=== PATIENT | male | born 1995 | race Caucasian/White ===

== ENCOUNTER 2024-01-22 14:15 | Emergency (ER) | payer OTHER, SELFPAY ==
--- NOTE | 2024-01-22 14:17 | W.ED.GENAD ---
Discharge Plan Disposition Patient Disposition: Home Discharge Details Clinical Impression: Nausea & vomiting, Blood pressure elevated without history of HTN Primary Care Provider: Unknown,Unknown ED Provider: Shukri Mesa Home Meds and New Rx's Prescriptions: No Action No Known Home Meds Discharge Instructions Instructions: Acute Nausea and Vomiting (ED) Additional Instructions: You were seen in the emergency department for your nausea and vomiting. Your blood work shows that your kidneys are working well and that you had no acute abnormalities of your electrolytes. Your COVID, influenza, and RSV swabs were all negative. As we discussed please take these nausea tablets as needed. Please resume eating but follow a bland diet for the next several days. If you do not urinate at least once every 8 hours while awake please return to the emergency department. Please also return if you develop fevers or abdominal pain. If you feel improved tomorrow you may go to work. You are receiving a note that we will also excuse you for 1 additional day if you do not feel well enough to work tomorrow. We also discussed your elevated blood pressure. Your referral has been placed for you to have a primary care provider. As we discussed if you develop shortness of breath swelling in your legs or hands or any chest pain please return to the emergency department. Stand Alone Forms: Work Release Discharge Data Discharge Date/Time-TO BE ENTERED AT DEPARTURE: 01/22/24 16:27 HPI General Date/Time Provider Initiated Documentation: 01/22/24 14:16. HPI Narrative: MDM This is an overall very well-appearing previously healthy normothermic and not tachycardic 29-year-old male with nausea and vomiting for which he will receive an assessment of his electrolytes along with 1 L of IV fluids and ondansetron for nausea. No fevers nor right lower quadrant tenderness to suggest appendicitis. No pain out of proportion to suggest necrotizing soft tissue infection. No testicular pain to suggest torsion. No dysuria nor frequency so doubt UTI. No diarrhea to suggest diverticulitis. No past surgical history to abdomen so my suspicion is low for small bowel obstruction. Patient is not an alcoholic and has no epigastric tenderness so I did not obtain a lipase as my suspicion was low for pancreatitis. Patient has no crepitance nor chest pain so my suspicion is low for esophageal rupture. Patient has no vascular risk factors and so my suspicion for ruptured AAA is low in the absence of abdominal pain. No rash to abdomen to suggest zoster. Patient is not a diabetic so my suspicion for DKA is low. No recent foreign travel to suggest atypical infection. Not immunocompromise to suggest opportunistic infection. No chest pain to suggest ACS so I did not obtain ECG. I considered sepsis however the patient is not septic appearing and is neither tachycardic nor tachypneic so I did not order a lactate nor treat empirically with broad-spectrum antibiotics. Given nontender abdomen my suspicion for bowel ischemia is low. No head trauma to suggest intracranial hemorrhage. Patient is not a marathon runner so my suspicion for gastric volvulus is low. No routine marijuana use to suggest cannabinoid hyperemesis syndrome. Will obtain LFTs to assess for hepatitis however the patient has nonicteric sclera. Will swab for COVID influenza and RSV. Will ensure patient can pass a p.o. trial in the ED. Vital signs notable for hypertension. Will ensure that this improves in the ED. 3:41 PM Reassuring comprehensive metabolic panel with very mild hyperbilirubinemia but no LFT abnormalities. Normal renal function. No acute electrolyte abnormalities. CBC lacks anemia thrombocytopenia and leukocytosis. 4:11 PM COVID influenza RSV all negative. I met with the patient. He had tolerated a p.o. trial. He had had no recurrent emesis in the emergency department. He reported feeling improved. Patient and I discussed his elevated blood pressure. He says that it is frequently elevated when he sees doctors. Prior to discharge his blood pressure was mildly improved. I advised him that if he developed shortness of breath any swelling in his legs or hands that he should return to the emergency department as this would be a concerning sign of renal failure from persistent hypertension. I also advised that he certainly could have whitecoat syndrome. He does not locally have a PCP yet but waiting to establish 1 this summer once he moves his son up to the area. I have asked health community service organization director Keysha to have the patient established with a primary care provider. I sent patient home with a short course of ondansetron. I provided him with a work note. We discussed that he should return to the emergency department if he developed any abdominal pain any fevers or if he could not eat or drink as result of nausea or vomiting. He understood his return indications and was discharged with empiric trial of expectant outpatient management. Chronic conditions affecting the care of the patient: N/A History obtained from an outside historian: N/A External record review: No [facility] [place] Medications: Ondansetron IVF Social determinants of health affecting disposition: N/A Management discussed with: N/A Treatment/interventions considered: CT scan but deferred based on nontender abdomen. Response to therapies provided: Improved symptoms in the ED HPI This is a previously healthy 29-year-old male arriving to the emergency department via private vehicle in the setting of nausea and vomiting. Patient reports that he ate dinner at his mother's 3 nights ago and had grilled chicken and salad. That evening he woke up with nausea and vomiting. He took the day off of work 2 days ago. Yesterday he felt slightly improved and was able to hold down some water. Yesterday evening with his girlfriend he had a small amount of food. He subsequently went to bed. He woke up in the morning and vomited again. He is able to fall back asleep and slept until just after noon today. He is able to hold down some water subsequently. He denies any abdominal pain but feels as if he has pulled a muscle in his stomach. No fevers. No syncope. He did have some weakness in some subjective chills after emesis. He has no sick contacts though lives with a 9-month-old baby. He only occasionally drinks ethanol denies routine ethanol and illicits. He denies dysuria and frequency. No testicular pain. He takes no medications and has no allergies. He has never had any surgeries to his abdomen. He has not tried to eat anything yet today. Exam General: Well-appearing in no acute distress speaking in complete sentences. Head: Normocephalic, atraumatic. Eye: Extraocular eye movements intact. No conjunctival injection. No scleral icterus. Ear, nose, mouth, throat: Grossly normal inspection. Normal voice, handling secretions normally. Neck: Trachea midline. Cardiovascular: Well-perfused distal extremities. Regular rate and rhythm. Respiratory: Nonlabored respiration. Clear lungs bilaterally Gastrointestinal: Nondistended abdomen. Soft nontender. No rebound. No guarding. No rash to abdomen. Musculoskeletal: No edema. Moving all 4 extremities spontaneously. Skin: Normal for age and race, grossly normal temperature and turgor. No acute rash. Neurologic: Alert and appropriate, no apparent acute deficits. Psychiatric: Mood and manner are appropriate. Grooming and personal hygiene are appropriate. Related Data Home Medications Medication Instructions Recorded Confirmed Unknown [No Known Home Meds] 01/22/24 01/22/24 Allergies Allergy/AdvReac Type Severity Reaction Status Date / Time No Known Allergies Allergy Verified 01/22/24 14:25 Medical Decision Making Quality:SDOH Health Related Social Needs: No Data to Display PFSH All Active Problems (Updated 01/22/24 @ 16:22 by Shukri Mesa MD) Blood pressure elevated without history of HTN (Acute) Nausea & vomiting (Acute) Social History Smoking risk assessment performed?: No
[2024-01-22 14:19] VITALS: BP 172/91; PULSE 63; RESP 16; TEMP 36.6; O2SAT 98
[2024-01-22] MEDS: Normal Saline 1,000 ML 1000 ML IV (14:54)
[2024-01-22] MEDS: Ondansetron 4 MG/2 ML VIAL IVP (14:55)
[2024-01-22 14:57] LABS: Abs Immature Grans 0.01 10^3/uL (0.0-0.06); Absolute Basophil Count 0.04 10^3/uL (0.0-0.2); Absolute Eosinophil Count 0.03 10^3/uL (0.0-0.7); Absolute Lymphocyte Count 1.73 10^3/uL (1.2-3.4); Absolute Monocyte Count 0.52 10^3/uL (0.1-0.8); Absolute Neutrophil Count 4.16 10^3/uL (1.2-6.7); Basophils % 0.6 %; Eosinophils % 0.5 %; HCT 43.7 % (40.0-50.0); HGB 15.7 g/dL (13.5-17.5); Immature Grans % 0.2 %; Lymphocytes % 26.7 %; MCH 32.1 pg (27.0-33.0); MCHC 35.9 % (32.0-36.0); MCV 89 fL (80-95); Platelet Count 181 10^3/uL (130-400); RBC 4.89 10^6/uL (4.36-5.78); RDW 10.7 % (11.8-14.1); RDW-SD 35.2 fL; WBC 6.49 10^3/uL (4.4-10.8)
[2024-01-22 15:18] LABS: ALT 46 U/L (16-63); AST 25 U/L (15-37); Albumin 4.2 g/dL (3.4-5.0); Alkaline Phosphatase 78 U/L (46-116); Anion Gap 9.4 mmol/L (3-11); BUN 11 mg/dL (7-18); Bilirubin, Total 1.2 mg/dL (0.2-1.0); CO2 27.6 mmol/L (21.0-32.0); CREATININE 0.9 mg/dL (0.70-1.30); Chloride 101 mmol/L (98-107); Estimated GFR 117.83 (mL/min/1.73m2); Glucose 95 mg/dL (74-106); Potassium 3.5 mmol/L (3.5-5.1); Sodium 138 mmol/L (136-145); Total Protein 7.3 g/dL (6.4-8.2)
[2024-01-22 15:56] LABS: COVID-19 PCR Negative (Negative); Influenza A PCR Negative (Negative); Influenza B PCR Negative (Negative); RSV PCR Negative (Negative)
[2024-01-22 16:04] LABS: Source Nasopharynx
[2024-01-22 16:13] VITALS: BP 161/101; PULSE 63; RESP 18; TEMP 36.7; O2SAT 98
[2024-01-22 16:26] VITALS: BP 161/101; PULSE 63; RESP 18; TEMP 36.7; O2SAT 98
[2024-01-22] MEDS: Ondansetron O.D.T. 4 MG TABEF, 3 TABS/BTL PO (16:27)
--- NOTE | 2024-01-22 19:38 | NUR.NOTE ---
Patient needs to establish pcp, referral to Care Management.Nursing Note:
== END 2024-01-22 16:27 | disposition home or self-care (01) ==
LOC: ER 16:25
PROVIDERS: Emergency Provider Emergency Medicine
DX: R11.2 Nausea with vomiting, unspecified (principal); R19.7 Diarrhea, unspecified; R03.0 Elevated blood-pressure reading, without diagnosis of hypertension
CPT/HCPCS: 36415; 80053; 87637; 96361; 96374; 99284; 85025; 99283; J2405

== ENCOUNTER 2024-04-29 16:24 | Emergency (ER) | payer OTHER, SELFPAY ==
[2024-04-29 16:25] VITALS: BP 121/84; PULSE 70; RESP 16; TEMP 37; O2SAT 98
--- NOTE | 2024-04-29 16:56 | ED.GENADUL_ITS ---
Discharge Plan Disposition Patient Disposition: Home Condition: Good Discharge Details Clinical Impression: Dehydration, Periumbilical hernia Primary Care Provider: Adelaida,Local ED Provider: J Carlos Davenport Home Meds and New Rx's Prescriptions: No Action No Known Home Meds Discharge Instructions Instructions: Dehydration, Adult (DC), Abdominal wall hernias Additional Instructions: At this time your exam is reassuring, you do have a mild hernia which we will place a referral with our surgeons for outpatient follow-up. Please make sure to wear a lifting belt to help reduce pressure on the hernia when you do lift. Avoid lifting excessively heavy weights. Please follow-up with the surgeon on an outpatient basis for reassessment. You do still have mild dehydration secondary to your nausea vomiting and diarrhea over the last few days. Please drink 6 to 8 cups of electrolyte solution this evening for rehydration, and rehydrate well throughout the day tomorrow while at work. If you notice any worsening of your symptoms, or any new symptoms such as vomiting, diarrhea, fever, chills, shortness of breath, chest pain, numbness, weakness, or fainting , please return immediately to the emergency department for reevaluation. Please follow up with your primary care provider as soon as possible for reassessment and reevaluation. As always, it was a pleasure par ticipating in your medical care today. Stand Alone Forms: Work Release Referrals: Matthieu Muñoz MD [ [facility] STAFF PHYSICIAN] - Zeyad Cabrera MD [ [facility] STAFF PHYSICIAN] - Tracy Almanzar DO [OSTEOPATHIC DOCTOR] - [facility] General Date/Time Provider Initiated Documentation: 04/29/24 16:37 . [facility] Narrative: 29-year-old male with no significant past medical history presents today for evaluation. Patient states that he went to the fair over the weekend, and then for Saturday and Saturday had multiple episodes of nausea vomiting and diarrhea. Eventually this resolved during Saturday, and today on Saturday he has complete resolution of his symptoms. He has been able to eat and drink and keep things down. His work he did request that he come in for a work note for permission to go back to work. Patient states that during his episodes of vomiting he did have mild pain at a previous hernia that he has had, and wanted to get that evaluated as well. Currently has no pain. He denies any pain currently, he denies any blood in his stool or vomit. He denies any chest pain or shortness of breath. He denies any other complaints at this time. No other modifying factors. Related Data Home Medications ?Medication ?Instructions ?Recorded ?Confirmed Unknown [No Known Home Meds] 01/22/24 04/29/24 Allergies Allergy/AdvReac Type Severity Reaction Status Date / Time No Known Allergies Allergy Verified 04/29/24 16:30 General Stated Complaint: Abd Prob ERIN: 5 Review of Systems All systems reviewed & are unremarkable except as noted in HPI and below Exam Narrative Exam Narrative: 1.Const: Well-nourished, Well-developed, appearing stated age 2.Eyes: PERRL, no conjunctival injection, and symmetrical lids. 3.ENT: Atraumatic external nose and ears. Dry MM. Neck: Symmetric, trachea midline, No thyromegaly. 4.CVS: +S1/S2, No murmurs or gallops. Peripheral pulses 2+ and equal in all extremities. Brisk capillary refill in all extremities. 5.RESP: Unlabored respiratory effort. Clear to auscultation bilaterally. No wheezes rales or rhonchi 6.GI: Soft, Nontender/Nondistended, No hepatosplenomegaly. No guarding or rebound. Small periumbilical hernia is palpable just superior to the umbilicus. Easily reducible. Nontender. No incarceration or strangulation. 7.MSK: Normocephalic/Atraumatic, Extremities w/o deformity or ttp No cyanosis or clubbing, Normal movement of all extremities 8.Skin: Warm, Dry. No rashes or lesions. 9.Neuro: photographic intelligence officer II-XII grossly intact. Sensation grossly intact, no focal neurologic deficits. 10.Psych: (AAO) x3. Appropriate mood and affect Course Vital Signs Vital signs: Vital Signs Temperature 37.0 C 04/29/24 16:25 Pulse 70 04/29/24 16:25 Respiratory Rate 16 04/29/24 16:25 Blood Pressure 121/84 04/29/24 16:25 Pulse Oximetry 98 04/29/24 16:25 Temperature 37.0 C 04/29/24 16:25 Temperature Source Temporal Artery Scan 04/29/24 16:25 Pulse 70 04/29/24 16:25 Respiratory Rate 16 04/29/24 16:25 Respiratory Effort Normal 04/29/24 16:31 Blood Pressure 121/84 04/29/24 16:25 Blood Pressure Position Sitting 04/29/24 16:25 Pulse Oximetry 98 04/29/24 16:25 Oxygen Delivery Method Room Air 04/29/24 16:25 Oxygen Flow Rate 0 04/29/24 16:25 Pain Level 1 04/29/24 16:25 Medical Decision Making 29-year-old male with no significant past medical history presents today for evaluation. Patient states that he went to the fair over the weekend, and then for Saturday and Saturday had multiple episodes of nausea vomiting and diarrhea. Eventually this resolved during Saturday, and today on Saturday he has complete resolution of his symptoms. He has been able to eat and drink and keep things down. His work he did request that he come in for a work note for permission to go back to work. Patient states that during his episodes of vomiting he did have mild pain at a previous hernia that he has had, and wanted to get that evaluated as well. Currently has no pain. He denies any pain currently, he denies any blood in his stool or vomit. He denies any chest pain or shortness of breath. He denies any other complaints at this time. No other modifying factors. Exam demonstrates a well-appearing male, dry mucous membranes are present. He has a small supraumbilical hernia which is easily reducible. No evidence of incarceration or strangulation. Abdomen is notably nontender, no guarding or rebound. No pain at McBurney's point, negative Fraser sign. Patient appears clinically well. With no indication for emergent surgical intervention at this time we will place an outpatient nonemergent referral with our local surgeons for further discussion of potential nonemergent future surgical options. Patient's vital signs are stable, no tachycardia or hypotension. Will recommend continued outpatient hydration. Recommended Gatorade or electrolyte solution for the next 12 to 24 hours. Otherwise patient appears notably stable. Discussed red flags for which to return. I have extensively reviewed the treatment plan and discharge instructions with the patient. I have addressed all patient concerns at this time. The patient was made aware of what symptoms to monitor for that would warrant a return to the emergency department. Discussed the plan with the patient, they demonstrate verbal understanding and agreement with our assessment and plan at this time. The documentation in this chart was dictated using [employer] dictation software. Please excuse any dictation errors. Quality:SDOH Health Related Social Needs: No Data to Display PFSH All Active Problems Periumbilical hernia (Acute) Dehydration (Acute) Social History Smoking risk assessment performed?: No
[2024-04-29 17:20] VITALS: BP 121/84; PULSE 70; RESP 16; TEMP 37; O2SAT 98
--- NOTE | 2024-04-29 17:27 | NUR.NOTE ---
Referral faxed to [facility] for a follow up as soon as available for a hernia.
== END 2024-04-29 17:23 | disposition home or self-care (01) ==
LOC: ER 17:29
PROVIDERS: Emergency Provider Student in an Organized Health Care Education/Training Program
DX: R10.9 Unspecified abdominal pain (principal); K42.9 Umbilical hernia without obstruction or gangrene; E86.0 Dehydration
CPT/HCPCS: 99282; 99283

== ENCOUNTER 2024-05-14 09:12 | Emergency (ER) | payer SELFPAY ==
[2024-05-14 09:28] VITALS: BP 153/93; PULSE 70; RESP 16; TEMP 36.8; O2SAT 98
[2024-05-14] MEDS: Ibuprofen 600 MG TAB PO (09:52)
[2024-05-14] MEDS: Lidocaine 5% Patch 1 PATCH TP (09:52)
[2024-05-14] MEDS: Acetaminophen 500 MG TAB 1000 MG PO (09:52)
--- NOTE | 2024-05-14 10:00 | DI.RAD_ITS ---
Exam(s) XR LUMBAR SPINE AP, LAT EXAM: XR LUMBAR SPINE AP, LAT CLINICAL HISTORY: lower back pain. TECHNIQUE: 2D digital imaging was performed. Five views. COMPARISON: No exams were available for comparison FINDINGS: BONES: No fracture or destructive lesion. Vertebral body heights are maintained. No facet hypertro phy identified . DISKS: Intervertebral disc spaces are maintained. ALIGNMENT: Lumbar spinal alignment is within normal limits. SOFT TISSUE: Normal. IMPRESSION: Unremarkable radiographs of the lumbar spine. DATA REPOSITORY: RADIATION DOSE DELIVERED:
[2024-05-14 10:32] VITALS: BP 142/89; PULSE 70; RESP 16; TEMP 36.8; O2SAT 99
--- NOTE | 2024-05-14 11:44 | W.ED.GENAD ---
Discharge Plan Disposition Patient Disposition: Home Condition: Stable Discharge Details Clinical Impression: Back pain Primary Care Provider: Adelaida,Local ED Provider: Skyla Quezada Home Meds and New Rx's Prescriptions: New lidocaine [Lidoderm] 5 % adhesive patch,medicated 1 patch topical DAILY Qty: 15 0RF Rx Instructions: leave on most painful area for up to 12 hrs methocarbamol 750 mg tablet 750 mg PO TID Qty: 30 0RF Discharge Instructions Instructions: Low Back Pain ED Discharge Data Discharge Date/Time-TO BE ENTERED AT DEPARTURE: 05/14/24 10:53 HPI General Date/Time Provider Initiated Documentation: 05/14/24 09:34. Limitations to Documentation: no limitations. Information obtained by: patient. HPI Narrative: 29-year-old gentleman without significant past medical history presents for evaluation of lumbar back pain. 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 He states that he felt some immediate pain in his lower back. He states that he continued to work but this morning he had more pain. He did not try any medications for relief. He denies any numbness or tingling. Denies any weakness in his legs. Pain worse with movement. Denies any change in bowel or bladder. He reports that in September he did have a fall that fractured his lumbar spine. He states that he did not require surgery. Related Data Home Medications ?Medication ?Instructions ?Recorded ?Confirmed lidocaine 5 % topical patch 1 patch topical DAILY #15 ea 05/14/24 (Lidoderm) methocarbamol 750 mg tablet 750 mg PO TID #30 tabs 05/14/24 Previous Rx's ?Medication ?Instructions ?Recorded lidocaine 5 % topical patch 1 patch topical DAILY #15 ea 05/14/24 (Lidoderm) methocarbamol 750 mg tablet 750 mg PO TID #30 tabs 05/14/24 Allergies Allergy/AdvReac Type Severity Reaction Status Date / Time No Known Allergies Allergy Verified 05/14/24 09:30 General Stated Complaint: Nk/Back Pain ERIN: 3 Exam Narrative Exam Narrative: Review of Systems: All systems reviewed & are unremarkable except as noted in HPI and below Well-developed, no acute distress NCAT Unlabored respiratory effort Extremities w/o deformity, no cyanosis, no edema No midline back tenderness, step-off or deformity, mild paraspinal lumbar tenderness 5 out of 5 strength bilateral lower extremities, normal sensation, normal gait no focal neurologic deficits Course Vital Signs Vital signs: Vital Signs Temperature 36.8 C 05/14/24 09:28 Pulse 70 05/14/24 09:28 Respiratory Rate 16 05/14/24 09:28 Blood Pressure 153/93 H 05/14/24 09:28 Pulse Oximetry 98 05/14/24 09:28 Temperature 36.8 C 05/14/24 10:32 Temperature Source Oral 05/14/24 09:28 Pulse 70 05/14/24 10:32 Respiratory Rate 16 05/14/24 10:32 Blood Pressure 142/89 H 05/14/24 10:32 Blood Pressure Position Sitting 05/14/24 09:28 Pulse Oximetry 99 05/14/24 10:32 Oxygen Delivery Method Room Air 05/14/24 09:28 Oxygen Flow Rate 0 05/14/24 09:28 Pain Level 6 05/14/24 10:32 Medical Decision Making Emergent evaluation of atraumatic lumbar back pain. The patient is neurologically intact and did not have any difficulty walking. He has not tried any medications for relief. Does have history of remote lumbar fracture. X-ray of his lumbar spine was obtained and radiology report was reviewed: IMPRESSION: Unremarkable radiographs of the lumbar spine. Medications were provided for comfort and prescriptions were also sent to the pharmacy for ongoing symptomatic improvement. Recommend follow-up with PCP for reevaluation of symptoms are not improving. Quality:SDOH Health Related Social Needs: No Data to Display PFSH All Active Problems Back pain (Acute) Periumbilical hernia (Acute) Dehydration (Acute) Social History Smoking risk assessment performed?: No Do you feel safe at home: Yes Do you feel safe in your relationship?: Yes
== END 2024-05-14 10:53 | disposition home or self-care (01) ==
PROVIDERS: Emergency Provider Emergency Medicine
DX: M54.50 Low back pain, unspecified (principal); X50.0XXA Overexertion from strenuous movement or load, initial encounter; Y93.89 Activity, other specified; Y92.812 Truck as the place of occurrence of the external cause; Y99.0 Civilian activity done for income or pay
CPT/HCPCS: 99283; 72100

== ENCOUNTER 2024-10-08 08:59 | Emergency (ER) | payer OTHER, SELFPAY ==
[2024-10-08 09:00] VITALS: BP 173/107; PULSE 78; RESP 15; TEMP 37; O2SAT 98
--- NOTE | 2024-10-08 09:14 | ED.GENADUL_ITS ---
Discharge Plan Disposition Patient Disposition: Home Condition: Stable Discharge Details Clinical Impression: Finger fracture Primary Care Provider: Adelaida,Local ED Provider: Erich Schulz Home Meds and New Rx's Prescriptions: Continued lidocaine [Lidoderm] 5 % adhesive patch,medicated 1 patch topical DAILY Qty: 15 0RF Rx Instructions: leave on most painful area for up to 12 hrs methocarbamol 750 mg tablet 750 mg PO TID PRN Discharge Instructions Additional Instructions: You have a fracture in both of your fingers. You can take 1000 mg of acetaminophen and 600 mg of ibuprofen every 6 hours as needed. Call orthopedics tomorrow to arrange for follow-up appointment. Return to the emergency department if you feel more ill or have severe worsening pain. Stand Alone Forms: Work Release Referrals: Arthur Cruz MD [ [facility] STAFF PHYSICIAN] - [facility] General Mode of arrival: ambulatory . Date/Time Provider Initiated Documentation: 10/08/24 09:08 . Limitations to Documentation: no limitations . Information obtained by: patient . History of Present Illness 29 year old M presents to the emergency department with the chief complaint of right middle and index finger pain, described as moderate, Quality is described as aching, Patient started experiencing this day(s) (1) and it has been constant. No relieving factors improve symptom(s), No exacerbating factors reported . Patient notes no other symptoms.. Patient did receive the following treatments prior to arrival, none Related Data Home Medications ?Medication ?Instructions ?Recorded ?Confirmed lidocaine 5 % topical patch 1 patch topical DAILY #15 ea 05/14/24 10/08/24 (Lidoderm) methocarbamol 750 mg tablet 750 mg PO TID PRN 10/08/24 10/08/24 Previous Rx's ?Medication ?Instructions ?Recorded lidocaine 5 % topical patch 1 patch topical DAILY #15 ea 05/14/24 (Lidoderm) Allergies Allergy/AdvReac Type Severity Reaction Status Date / Time No Known Allergies Allergy Verified 10/08/24 09:08 General Stated Complaint: Orthopedic ERIN: 4 Review of Systems All systems reviewed & are unremarkable except as noted in HPI and below Constitutional Constitutional: Denies chills, Denies fever(s) and Denies weakness Cardiovascular Cardiovascular: Denies chest pain and Denies dyspnea Respiratory Respiratory: Denies cough and Denies dyspnea Gastrointestinal Gastrointestinal: Denies abdominal pain, Denies nausea and Denies vomiting Neurologic Neurologic: Denies weakness Exam Const General: no acute distress Orientation: alert HENVT Head: normal to inspection Ears: external ears normal General nose exam: external nose normal Mouth: moist mucous membranes Eyes General: appearance normal, both eyes and all related structures Neck Neck: normal visual inspection Resp Effort & Inspection: normal respiratory effort and able to speak in complete sentences Cardio Rate: regular rate Skin General skin exam: no rashes or lesions noted Neuro General: patient alert and patient oriented x3 Extrem General: normal to inspection, full ROM and capillary refill normal Psych Mental Status: mental status grossly normal Course Vital Signs Vital signs: Vital Signs Temperature 37.0 C 10/08/24 09:00 Pulse 78 10/08/24 09:00 Respiratory Rate 15 10/08/24 09:00 Blood Pressure 173/107 H 10/08/24 09:00 Pulse Oximetry 98 10/08/24 09:00 Temperature 37.0 C 10/08/24 09:00 Temperature Source Oral 10/08/24 09:00 Pulse 78 10/08/24 09:00 Respiratory Rate 15 10/08/24 09:00 Blood Pressure 173/107 H 10/08/24 09:00 Blood Pressure Position Sitting 10/08/24 09:00 Pulse Oximetry 98 10/08/24 09:00 Oxygen Delivery Method Room Air 10/08/24 09:00 Oxygen Flow Rate 0 10/08/24 09:00 Pain Level 6 10/08/24 09:00 Medical Decision Making 29-year-old male comes in with pain in his right index and middle fingers. He says he works for [employer] and the door is a sliding door. He started on a hill when it was partially opened and he went to grab the door with his right hand and his right index and middle fingers got caught in the door. Denies falling or other injuries. He has pain in the PIP joint in both the right index and middle finger. There is some swelling in both of his fingers in that area. Is full range of motion, intact cap refill. He has no tenderness elsewhere in the hand. Suspect contusion but will obtain x-rays to evaluate for fracture Patient has nondisplaced fractures of the volar plates in both fingers. He is stable. Will place in finger splint and tape the fingers together. Will have him follow-up with orthopedics. Return precautions given Differential Diagnosis Differential Diagnosis: Fracture, contusion Imaging Data Radiologic Study: Attestation: I personally reviewed and interpreted this imaging study as follows: Imaging: X-Ray Radiologist's impression: FINDINGS: BONES: There are nondisplaced fractures at the volar plates of the middle phalanges of the index and middle fingers. No bony destructive lesion is seen. JOINTS: No dislocation present. SOFT TISSUE: Normal swelling around the 2nd and 3rd PIP joints. IMPRESSION: Nondisplaced fractures at the volar plates at the middle phalanges of the middle and index fingers. Quality:SDOH Health Related Social Needs: No Data to Display PFSH All Active Problems Finger fracture (Acute) Vaping nicotine dependence, tobacco product (Acute) Social History Smoking/Tobacco Use Status: Current every day Tobacco Type: e-cigarettes Smoking risk assessment performed?: Yes Alcohol Intake: current Alcohol Intake frequency: 0-2 drinks per day Alcohol type: other Drug use: Never Substance use type: does not use Do you feel safe at home: Yes Do you feel safe in your relationship?: Yes
--- NOTE | 2024-10-08 09:50 | DI.RAD_ITS ---
Exam(s) XR FINGER RT MIDDLE XR FINGER RT INDEX EXAM: XR FINGER RT MIDDLE CLINICAL HISTORY: pain s/p crushed in door. TECHNIQUE: 2D digital imaging was performed. Three views. COMPARISON: CR XR FINGER RT INDEX from 10/08/2024 FINDINGS: BONES: There are nondisplaced fractures at the volar plates of the middle phalanges of the index and middle fingers. No bony destructive lesion is seen. JOINTS: No dislocation present. SOFT TISSUE: Normal swelling around the 2nd and 3rd PIP joints. IMPRESSION: Nondisplaced fractures at the volar plates at the middle phalanges of the middle and index fingers. DATA REPOSITORY: RADIATION DOSE DELIVERED:
== END 2024-10-08 10:34 | disposition home or self-care (01) ==
PROVIDERS: Emergency Provider Emergency Medicine
DX: S62.650A Nondisplaced fracture of middle phalanx of right index finger, initial encounter for closed fracture (principal); S62.652A Nondisplaced fracture of middle phalanx of right middle finger, initial encounter for closed fracture; F17.290 Nicotine dependence, other tobacco product, uncomplicated; W23.0XXA Caught, crushed, jammed, or pinched between moving objects, initial encounter; Y93.89 Activity, other specified; Y92.89 Other specified places as the place of occurrence of the external cause; Y99.0 Civilian activity done for income or pay
CPT/HCPCS: 99283; 73140

== ENCOUNTER 2024-10-27 14:44 | Outpatient (CLI) | payer OTHER, SELFPAY ==
--- NOTE | 2024-10-27 14:30 | DI.RAD_ITS ---
Exam(s) XR HAND RT COMPLETE EXAM: XR HAND RT COMPLETE CLINICAL HISTORY: F/U FRACTURE. TECHNIQUE: 2D digital imaging was performed. Three views. COMPARISON: CR XR FINGER RT MIDDLE from 10/08/2024 FINDINGS: The volar plate fracture of the middle phalanx of the middle finger remains faintly visible. No new abnormality is seen. IMPRESSION: Unremarkable radiographs of the right hand. DATA REPOSITORY: RADIATION DOSE DELIVERED:
== END 2024-10-27 14:45 | disposition home or self-care (01) ==
LOC: DIORS 14:45
PROVIDERS: Visit Provider Student in an Organized Health Care Education/Training Program
DX: S62.650D Nondisplaced fracture of middle phalanx of right index finger, subsequent encounter for fracture with routine healing (principal); X58.XXXD Exposure to other specified factors, subsequent encounter; S62.652D Nondisplaced fracture of middle phalanx of right middle finger, subsequent encounter for fracture with routine healing
CPT/HCPCS: 73130

== ENCOUNTER 2024-12-05 21:43 | Emergency (ER) | payer OTHER, SELFPAY ==
[2024-12-05] VITALS (16 sets, daily range): BP systolic 115–168; BP diastolic 51–105; PULSE 81–106; RESP 10–28; TEMP 37.1; O2SAT 98–100
--- NOTE | 2024-12-05 21:45 | DI.RAD_ITS ---
Exam(s) XR ANKLE RT COMPLETE EXAM: XR ANKLE RT COMPLETE CLINICAL HISTORY: fall, swelling, eval fx. TECHNIQUE: 2D digital imaging was performed of the right ankle. Three images were obtained. AP, la teral and oblique views were obtained. COMPARISON: No exams were available for comparison FINDINGS: BONES: There is an acute oblique fracture of the distal right fibula. The medial aspect of the fract ure lies at the level of the ankle joint. There is both posterior and lateral displacement of the fr acture noted. There is 3 mm lateral displacement of the distal fibular fracture. There is a transve rse fracture through the medial malleolus with distraction of the fracture. There is also question o f a posterior malleolar fracture present. No bony destructive lesion is seen. JOINTS: There is been posterior subluxation of the talus relative to the tibia. SOFT TISSUE: There is soft tissue swelling of the ankle. IMPRESSION: Trimalleolar fracture subluxation of the right ankle. CT scan of the ankle may be obtained for miguel r characterization, particularly of the suspected posterior malleolar fracture. DATA REPOSITORY: RADIATION DOSE DELIVERED:
--- NOTE | 2024-12-05 21:52 | W.ED.GENAD ---
Discharge Plan Disposition Patient Disposition: Home Condition: Stable Discharge Details Clinical Impression: Closed trimalleolar fracture Primary Care Provider: Ilda Desir ED Provider: Yuliana Tomas Home Meds and New Rx's Prescriptions: No Action lidocaine [Lidoderm] 5 % adhesive patch,medicated 1 patch topical DAILY Qty: 15 0RF Rx Instructions: leave on most painful area for up to 12 hrs methocarbamol 750 mg tablet 750 mg PO TID PRN Discharge Instructions Instructions: Ankle Fracture ED Additional Instructions: You were seen in the emergency department today for evaluation of an ankle injury and were found to have a trimalleolar ankle fracture. In our department you had a full physical examination performed, received medications for sedation and had your fracture realigned to the appropriate position. You were placed in a splint and you will be contacted by the orthopedics team to schedule surgery. Please use Tylenol and ibuprofen as well as ice and elevation for pain and swelling, I have also sent you home with a small number of oral morphine which you can use for severe breakthrough pain that does not respond to those alternative measures. You must not bear weight on your leg, please use crutches to get around. Thank you for allowing us to be part of your care. Stand Alone Forms: Work Release Referrals: Arthur Cruz MD [ [facility] STAFF PHYSICIAN] - 5 days HPI General Mode of arrival: EMS. Date/Time Provider Initiated Documentation: 12/05/24 21:51. Limitations to Documentation: no limitations. Information obtained by: patient, EMS and old records reviewed. HPI Narrative: HPI: This is a 29-year-old male patient brought in by EMS with a right ankle injury. The patient reports he was walking to his [facility] [employer] [facility], stepped in a mud pit, and struck something while he was falling, heard a snap in his right ankle and was immediately unable to ambulate. He reports that prior to this event he was in his normal state of health, though he has had a few alcoholic beverages this evening. States that he did not injure any other part of his body, did not strike his head, and did not lose consciousness. The patient had to crawl approximately half a mile to get out towards the road, EMS was summoned and there was an extended extrication and transport. Prior to arrival at our facility who received a gram of Tylenol, 4 mg of Zofran, and a total of 200 mcg of fentanyl in divided doses over a 45-minute transport time. The patient reports pain and swelling in his right ankle, states that he does not have any loss of sensation or numbness distal to this injury, has full range of motion of his toes and does not have any pain at the knee. Exam: Gen: Awake and alert, in no apparent distress HEENT: Non-icteric sclera, EOMs are full. Scalp atraumatic Neck: Supple, no cervical spine tenderness Lungs: No apparent respiratory distress, normal respiratory effort. CV: Appears well perfused, strong distal pulses Abdomen: Non-distended MSK: Moves 4 extremities without apparent limitation in ROM with the exception of the right ankle, which is swollen and painful with movement. The patient has bilateral swelling, no skin breaks, no midfoot tenderness, strong DP pulses, full range of motion of the toes. He has no tenderness to palpation of the calf or rico, knee, proximal fibular region. Pelvis stable to AP compression. Skin: Visualized skin without rashes, cyanosis. Neuro: Normal Gait, no obvious focal deficits or facial asymmetry. Speaks in full, clear sentences. Psych: Appropriate for situation. MDM: This is a 29-year-old male patient presenting for evaluation of an ankle injury. Differential includes but is not limited to fracture, dislocation, sprain. No evidence of neurovascular derangement. This is an isolated injury and the patient's trauma examination is otherwise reassuring. Will obtain x-ray imaging to better characterize the injury. ED Course: X-ray reveals a trimalleolar fracture with evidence of subluxation. I did reach out to orthopedics who recommended reduction through the Aamir maneuver, splinting and outpatient orthopedics surgical management. Sedation provided by Dr. Ramon Toro, please see documentation by that provider, required 140 mg of propofol after which time the fracture was successfully reduced and placed in a posterior short leg splint with stirrup. Postreduction x-rays show near anatomical alignment, patient neurovascularly intact after this procedure. The patient was made nonweightbearing and crutches were provided, as well as a short course of oral morphine for breakthrough pain. I counseled the patient on elevation, Tylenol and ibuprofen, and at this time, the patient has had a full medical evaluation and is safe for discharge to home. They are hemodynamically stable, ambulatory, and tolerating PO. They are understanding of the follow-up plan and return precautions. They left our facility without incident. Yuliana Tomas MD Related Data Home Medications ?Medication ?Instructions ?Recorded ?Confirmed lidocaine 5 % topical patch 1 patch topical DAILY #15 ea 05/14/24 12/05/24 (Lidoderm) methocarbamol 750 mg tablet 750 mg PO TID PRN 10/08/24 12/05/24 Previous Rx's ?Medication ?Instructions ?Recorded lidocaine 5 % topical patch 1 patch topical DAILY #15 ea 05/14/24 (Lidoderm) Allergies Allergy/AdvReac Type Severity Reaction Status Date / Time No Known Allergies Allergy Verified 12/05/24 21:46 General Stated Complaint: Orthopedic ERIN: 3 Course Vital Signs Vital signs: Vital Signs Temperature 37.1 C 12/05/24 21:42 Pulse 88 12/05/24 21:42 Respiratory Rate 16 12/05/24 21:42 Blood Pressure 168/105 H 12/05/24 21:42 Pulse Oximetry 99 12/05/24 21:42 Temperature 37.1 C 12/05/24 21:42 Temperature Source Oral 12/05/24 21:42 Pulse 88 12/05/24 21:42 Respiratory Rate 16 12/05/24 21:42 Blood Pressure 168/105 H 12/05/24 21:42 Blood Pressure Position Sitting 12/05/24 21:42 Pulse Oximetry 99 12/05/24 21:42 Oxygen Delivery Method Room Air 12/05/24 21:42 Oxygen Flow Rate 0 12/05/24 21:42 Pain Level 5 12/05/24 21:47 Procedure Fracture Reduction Fracture #1: Date of Procedure: 12/05/24 Time of procedure: 23:00 Provider that performed the procedure: Yuliana Tomas Standard Time Out Performed: Yes Patient Consented: Written Side: right Fracture Reduction Location: tibia Sedation administered by provider performing procedure: Yes Technique: direct manipulation and traction/counter-traction Post Reduction X-rays Demonstrate: anatomical reduction Post-Reduction Neuro Exam: intact Post-Reduction Vascular Exam: intact Splint Applied: Yes Patient Tolerated Procedure: well and no complications Outcome: other Medical Decision Making Quality:SDOH Health Related Social Needs: No Data to Display PFSH All Active Problems Closed trimalleolar fracture (Acute) Sprain of right index finger (Acute ~10/07/24) Fracture of phalanx of right middle finger (Acute ~10/07/24) Vaping nicotine dependence, tobacco product (Acute) Social History Smoking/Tobacco Use Status: Current every day Tobacco Type: e-cigarettes Smoking risk assessment performed?: Yes Alcohol Intake: current Alcohol Intake frequency: 0-2 drinks per day Alcohol type: other Drug use: Never Substance use type: does not use Housing: house Do you feel safe at home: Yes Do you feel safe in your relationship?: Yes
--- NOTE | 2024-12-05 22:24 | DI.VRAD_ITS ---
PROCEDURE INFORMATION: Exam: XR Right Ankle Exam date and time: 12/05/2024 9:59 PM Age: 29 years old Clinical indication: Pain; Ankle; Right; Fall, swelling, eval FX TECHNIQUE: Imaging protocol: Radiologic exam of the right ankle. Views: 3 or more views. COMPARISON: No relevant prior studies available. FINDINGS: Bones/joints: Fracture subluxation of the right ankle. There is a transverse fracture of the medial malleolus distracted 6 mm. There is no oblique fracture of the distal fibular metaphysis distracted 4 mm. This is consistent with an eversion injury. Possibility of a posterior tibial fracture making this a trimalleolar fracture injury. Recommend CT evaluation for greater sensitivity. Prominent widening of the anterior tibiotalar joint at 1.3 cm. Anterior subluxation of the tibia on the talar dome. Consistent with ligamentous disruption. Soft tissues: Prominent lateral soft tissue swelling. IMPRESSION: 1. Fracture subluxation of the right ankle. Consistent with an eversion injury. 2. Oblique distal fibular metaphyseal fracture with 4 mm distraction. 3. Transverse medial malleolar fracture with 6 mm distraction. 4. Concern for a posterior tibial fracture on lateral view. This is not definitive by plain film. Consider CT follow-up. 5. Widening of the anterior tibiotalar joint at 1.3 cm. 6. Prominent soft tissue swelling. Dictated and Authenticated by: Amado Ma MD. Orderin [facility] Eliot Bridges MD
[2024-12-05] MEDS: Propofol 200 MG/20 ML VIAL 100 MG IVP (22:40)
--- NOTE | 2024-12-05 23:00 | DI.RAD_ITS ---
Exam(s) XR ANKLE RT 2V EXAM: XR ANKLE RT 2V CLINICAL HISTORY: post reduction. TECHNIQUE: 2D digital imaging was performed of the right ankle. Two images were obtained. AP and l ateral views were obtained. COMPARISON: CR,XR XR ANKLE RT COMPLETE from 12/05/2024 FINDINGS: The patient's ankle is now in a cast. BONES: There has been successful reduction of the right ankle fracture subluxation. A trimalleolar f racture of the right ankle is noted. There is a mildly displaced comminuted posterior malleolar frac ture. There is 2 mm displacement posterior of the distal fibular fracture. The medial malleolar fra cture appears near anatomic in alignment. No bony destructive lesion is seen. JOINTS: The ankle mortise is normally aligned. SOFT TISSUE: There is soft tissue swelling of the ankle. IMPRESSION: Successful reduction of the trimalleolar right ankle fracture subluxation with near anatomic realignm ent. DATA REPOSITORY: RADIATION DOSE DELIVERED:
--- NOTE | 2024-12-05 23:02 | W.EDPROG ---
Date of service: 12/05/24 Time of Service: 23:02 Medical Decision Making Patient had presented to ED with ankle injury and was found to have a trimalleolar fracture. Asked by primary physician to provide procedural sedation. Patient last ate around 6 PM. No significant past medical history. Discussed risk/benefit of procedural sedation. Will use propofol as agent. Please see procedure note. Procedure Procedural Sedation Date of Procedure: 12/05/24 Time of procedure: 23:02 Provider that performed the procedure: Miguel A Toro Indication: Procedural optimization Patient Consented: Written Standard Time Out Performed: Yes Sedation Given: Propofol Amount of sedation(mg): 190 Preparation: associate professor plant pathology applied, pulse oximeter, capnometry used, supplemental O2 applied, suction/airway equipment at bedside and IV secured Time of Last PO Intake: 18:00 Note: A total of 190 mg given in aliquots until sedated for procedure. No change in vitals, no complications. Discharge Plan Discharge Details Chief Complaint: Orthopedic Clinical Impression: Closed trimalleolar fracture Primary Care Provider: Ilda Desir ED Provider: Yuliana Tomas [place] Meds and New Rx's Prescriptions: No Action lidocaine [Lidoderm] 5 % adhesive patch,medicated 1 patch topical DAILY Qty: 15 0RF Rx Instructions: leave on most painful area for up to 12 hrs methocarbamol 750 mg tablet 750 mg PO TID PRN
[2024-12-05] MEDS: Propofol 200 MG/20 ML VIAL 90 MG IVP (23:06)
[2024-12-05] MEDS: MORPHine IR 15 MG TAB PO (23:27)
--- NOTE | 2024-12-05 23:55 | DI.VRAD_ITS ---
PROCEDURE INFORMATION: Exam: XR Right Ankle Exam date and time: 12/05/2024 11:43 PM Age: 29 years old Clinical indication: Injury or trauma; Fall; Fracture, traumatic; Closed fracture; Ankle; Right; Not specified; Injury details: Post reduction TECHNIQUE: Imaging protocol: Radiologic exam of the right ankle. Views: 1 or 2 views. COMPARISON: CR XR ANKLE RT COMPLETE 12/05/2024 9:59 PM FINDINGS: Bones/joints: Post closed reduction of trimalleolar ankle fracture subluxation. Near anatomic alignment. Posterior fiberglass splint in place. Soft tissues: Normal. IMPRESSION: 1. Post closed reduction of trimalleolar fracture subluxation with near anatomic alignment. 2. Fiberglass posterior splint. Dictated and Authenticated by: Amado Ma MD. Orderin [facility] Eliot Bridges MD
[2024-12-06] VITALS: PULSE 83; PULSE 85; RESP 18; O2SAT 98
[2024-12-06 00:01] VITALS: BP 147/60; PULSE 84; PULSE 94; RESP 22; O2SAT 98
[2024-12-06] MEDS: MORPHine IR 15 MG TAB, 4 TABS/BTL PO (00:09)
[2024-12-06 00:11] VITALS: BP 147/60; PULSE 84; RESP 22; O2SAT 98
== END 2024-12-06 00:12 | disposition home or self-care (01) ==
PROVIDERS: Emergency Provider Emergency Medicine; PCP Nurse Practitioner Family
DX: S82.851A Displaced trimalleolar fracture of right lower leg, initial encounter for closed fracture (principal); W01.0XXA Fall on same level from slipping, tripping and stumbling without subsequent striking against object, initial encounter; Y93.01 Activity, walking, marching and hiking
CPT/HCPCS: 00123; 27818; 99156; 99284; 73600; 73610; J2704

== ENCOUNTER 2024-12-08 11:15 | Day surgery (SDC) | payer OTHER, SELFPAY ==
[2024-12-08] VITALS (18 sets, daily range): BP systolic 129–174; BP diastolic 61–103; PULSE 56–73; RESP 14–23; TEMP 36.2–36.8; O2SAT 96–100; BMI 26.6
[2024-12-08] MEDS: Celecoxib 200 MG CAP 400 MG PO (11:46)
[2024-12-08] MEDS: Acetaminophen 500 MG TAB 1000 MG PO (11:47)
[2024-12-08] MEDS: Lactated Ringers 1,000 ML 80 ML IV (11:58)
--- NOTE | 2024-12-08 12:01 | W.PREOPHP ---
Assessment and Plan Assessment and plan (1) Closed trimalleolar fracture: Status: Acute Assessment and plan: Erich is a 29-year-old male who has a right trimalleolar ankle fracture. I recommend operative fixation. I discussed the tentacle details of the surgery. I reviewed the risk to include bleeding, infection, pain, stiffness, hardware prominence, hardware failure, need for repeat procedures, damage nerves and vessels, damage to muscle and tendons, arthritis, blood clot. Despite these risk, he elects to proceed. History of Present Illness History of Present Illness Chief Complaint: Right Ankle Fracture Narrative: Erich is a 29-year-old active male who slipped while hiking and suffered a injury to his right foot, resulting in a closed trimalleolar ankle fracture. He was seen in the emergency department with subluxation of the talus and trimalleolar ankle fracture, reduced and placed in a splint. I called him the following day to discuss his x-rays and the injury. Given the nature of the fracture and its inherent instability, I recommend proceeding with operative stabilization and fixation. He is here today for that procedure. He denies any significant medical history. He denies any recent illness. He denies any chest pain or shortness of breath. Review of Systems All systems reviewed & are unremarkable except as noted in HPI and below PFSH All Active Problems Closed trimalleolar fracture (Acute) Sprain of right index finger (Acute ~10/07/24) Fracture of phalanx of right middle finger (Acute ~10/07/24) Vaping nicotine dependence, tobacco product (Acute) Surgical History Hx of wisdom tooth extraction Social History Smoking/Tobacco Use Status: Current every day Tobacco Type: e-cigarettes Smoking risk assessment performed?: Yes Alcohol Intake: current Alcohol Intake frequency: 0-2 drinks per day Drug use: Never Substance use type: does not use Housing: house Do you feel safe at home: Yes Do you feel safe in your relationship?: Yes Meds Allergies and Home Medications Allergies Allergy/AdvReac Type Severity Reaction Status Date / Time No Known Allergies Allergy Verified 12/08/24 11:31 Home Medications ?Medication ?Instructions ?Recorded ?Confirmed ?Type lidocaine 5 % topical patch 1 patch topical DAILY #15 ea 05/14/24 12/08/24 Rx (Lidoderm) acetaminophen 500 mg tablet 500 mg PO Q6H PRN pain #60 tabs 12/08/24 Rx aspirin 81 mg tablet,delayed 81 mg PO BID 14 days #28 tabs 12/08/24 Rx release hydrocodone 5 mg-acetaminophen 325 1 tab PO Q6H PRN severe pain #6 12/08/24 Rx mg tablet tabs ibuprofen 600 mg tablet 600 mg PO TID PRN pain #60 tabs 12/08/24 Rx Exam Const General: cooperative, healthy appearing, comfortable and no acute distress Resp Effort & Inspection: normal respiratory effort Auscultation: clear to auscultation bilaterally Cardio Rate: regular rate Rhythm: regular rhythm Extrem Other: Right lower extremity in a splint. Capillary refill less than 3 seconds. Sensation tact light touch over the deep and superficial peroneal nerve and tibial nerve. No significant pain with toe range of motion. Brief evaluation of the skin about the ankle shows no large fracture blisters or other defects of the skin. Results Imaging Imaging Studies: X-ray of the right ankle shows a trimalleolar ankle fracture with a oblique distal fibula fracture, transverse me malleolar fracture and a small posterior malleolar fracture. There was some posterior subluxation of the talus on initial x-rays which was improved upon postreduction films. Last Vital Signs Temp 36.2 C L 12/08/24 11:19 Pulse 63 12/08/24 11:19 Resp 18 12/08/24 11:19 BP 165/93 H 12/08/24 11:19 Pulse Ox 99 12/08/24 11:19
--- NOTE | 2024-12-08 12:21 | W.ANESPRE ---
General Info Date of Service Date Performed: 12/08/24 Height: 5 ft 10 in Weight: 84.1 kg Body Mass Index (BMI): 26.6 Surgical Procedure: Operation Date: 12/08/24 14:55 Proposed Procedure Side Surgeon p Ankle ORIF Right Arthur Cruz MD Meds Allergies and Home Medications Allergies Allergy/AdvReac Type Severity Reaction Status Date / Time No Known Allergies Allergy Verified 12/08/24 11:31 Home Medication ?Medication ?Instructions ?Recorded lidocaine 5 % topical patch 1 patch topical DAILY #15 ea 05/14/24 (Lidoderm) acetaminophen 500 mg tablet 500 mg PO Q6H PRN pain #60 tabs 12/08/24 aspirin 81 mg tablet,delayed 81 mg PO BID 14 days #28 tabs 12/08/24 release hydrocodone 5 mg-acetaminophen 325 1 tab PO Q6H PRN severe pain #6 12/08/24 mg tablet tabs ibuprofen 600 mg tablet 600 mg PO TID PRN pain #60 tabs 12/08/24 Current Visit Medications: Current Medications Generic Name Dose Route Start Last Admin Trade Name Freq PRN Reason Stop Dose Admin Acetaminophen 1,000 mg 12/08/24 06:00 12/08/24 11:47 Acetaminophen 500 Mg Tab PO 12/08/24 23:59 1,000 mg PREOP AYESHA Administration Celecoxib 400 mg 12/08/24 06:00 12/08/24 11:46 Celecoxib 200 Mg Cap PO 12/08/24 23:59 400 mg PREOP AYESHA Administration Ringer's Solution 1,000 mls @ 80 mls/hr 12/08/24 06:00 12/08/24 11:58 IV 12/08/24 23:59 80 mls/hr INFUSION AYESHA Administration Cefazolin Sodium/Dextrose 2 gm in 50 mls @ 100 mls/hr 12/08/24 06:00 Ancef Duplex IVPB 12/08/24 23:59 PREOP AYESHA Tranexamic Acid/Sodium Chloride 1,000 mg in 100 mls @ 600 mls/hr 12/08/24 06:00 IVPB 12/08/24 23:59 PREOP AYESHA IV Miscellaneous Supplies 1 each 12/08/24 06:00 Iv Access IV 12/08/24 23:59 DIRECTED AYESHA Sodium Chloride 0 ml 12/08/24 06:00 Normal Saline Flush 10 Ml Syr IV 12/08/24 23:59 PRN PRN Sodium Chloride 0 ml 12/08/24 06:00 Normal Saline 10 Ml Vial IJ 12/08/24 23:59 DIRECTED PRN Sterile Water 0 ml 12/08/24 06:00 Water,Injection,Sterile 10 Ml Vial IJ 12/08/24 23:59 DIRECTED PRN PFSH Active Problems Active Problems: Problem Status Onset Code Closed trimalleolar fracture Acute S82.853A Sprain of right index finger Acute ~10/07/24 S63.610A Fracture of phalanx of right middle finger Acute ~10/07/24 S62.602A Vaping nicotine dependence, tobacco product Acute F17.290 Surgical History Surgical History Hx of wisdom tooth extraction Tobacco Smoking/Tobacco Use Status: Current every day Tobacco Type: e-cigarettes Passive smoking exposure: Yes Alcohol Alcohol Intake: current Alcohol intake frequency: 0-2 drinks per day Substance Use Substance use: Never Substance use type: does not use Vital Signs and Lab Results Vital Signs Most Recent Vital Signs in EMR: Most Recent Vital Signs Temp Pulse Resp BP Pulse Ox 36.2 C L 63 18 165/93 H 99 12/08/24 11:19 12/08/24 11:19 12/08/24 11:19 12/08/24 11:19 12/08/24 11:19 Lab Results Blood Type / Crossmatch: No Data to Display Complete Blood Count: No Data to Display Complete Metabolic Panel: No Data to Display Liver Function Panel: No Data to Display Coagulation Panel: No Data to Display Cardiac Panel: No Data to Display Arterial Blood Gas: No Data to Display Venous Blood Gas: No Data to Display Pancreas Panel: No Data to Display Thyroid Panel: No Data to Display Infectious Disease: No Data to Display Blood Cultures: No Data to Display Toxicology Panel: No Data to Display Anesthesia Assessment and Plan Anesthesia History Personal History: No History of Anesthesia Complications Family History: No Family History of Anesthesia Complications Exercise Tolerance Exercise Tolerance: Metabolic Equivalents>4 Pertinent Negatives Pertinent Negatives: No Symptoms of GERD Cardiac & Pulmonary Exam Cardiac Exam: Normal S1/S2 Heart Sounds Pulmonary Exam: Clear Bilateral Breath Sounds Implantable Cardiac Device Does patient have a Pacemaker or an ICD?: No Airway Exam Known Difficult Airway: No Mallampati Class: 2 Mouth Opening: Normal (> 3cm) Thyromental Distance: Greater than 3 cm Facial Hair: Full Suh Neck Range of Motion: Full ROM Neck Circumference: Normal Teeth Condition: Normal Dentition ASA Classification ASA Score: ASA 2 Emergency Case?: No NPO Status NPO Status: NPO Clears >2 hours, Solids >8 hours Anesthesia Plan Resuscitation Status: Full Code Anesthesia Technique: General Anesthesia Airway Planned: LMA Pain Management: Surgeon and patient request nerve block Monitors Used: Standard Monitors Preoperative Comments:: 29 yo male for ORIF ankle. Sig PMHx: vape, occ EtOH, denies major.
--- NOTE | 2024-12-08 12:35 | W.PM.DSUDISC ---
Date of service: 12/08/24 Discharge Plan Disposition Patient Disposition: Home Condition: Good Discharge Details Reason For Visit: Right ankle fracture Attending Provider: Arthur Cruz Primary Care Provider: Ilda Desir Home Meds and New Rx's Prescriptions: New acetaminophen 500 mg tablet 500 mg PO Q6H PRN (Reason: pain) Qty: 60 2RF aspirin 81 mg tablet,delayed release (DR/EC) 81 mg PO BID 14 Days Qty: 28 0RF hydrocodone-acetaminophen 5-325 mg tablet 1 tab PO Q6H PRN (Reason: severe pain) Qty: 6 0RF Rx Instructions: Take one tablet up to every 6 hours as needed for severe postoperative pain ibuprofen 600 mg tablet 600 mg PO TID PRN (Reason: pain) Qty: 60 0RF Continued lidocaine [Lidoderm] 5 % adhesive patch,medicated 1 patch topical DAILY Qty: 15 0RF Rx Instructions: leave on most painful area for up to 12 hrs Discontinued ibuprofen 200 mg tablet 800 mg PO Q8H PRN Discharge Instructions Additional Instructions: Ankle ORIF Discharge Instructions Activity: You are NON WEIGHT BEARING. You should keep the leg elevated as much as possible. You may wiggle your toes and move your hip and knee. Dressings: You should keep your splint clean and dry. Do NOT get wet or dirty. If you have issues with your splint, please call the office at [phone] or the hospital after hours. Medications: - You should take Tylenol and Ibuprofen around the clock for baseline pain. - You have been prescribed a stronger narcotic for breakthrough pain. - You should take a Baby Aspirin (81mg) twice a day for blood clot prevention. Follow-up: 2 weeks Referrals: Arthur Cruz MD [ [facility] STAFF PHYSICIAN] - Equipment/Supplies: Non-Weight Bearing Crutches and Splint Activity:: Elevate Remove Dressings/Wound Care:: Do Not Remove Diet:: As Tolerated Discharge Orders Discharge Orders: Discharge Order (Routine); Ordered 12/08/24 Ordered By: Tracy Diop DS: Diagnosis Discharge Diagnosis (1) Closed trimalleolar fracture: Status: Acute
--- NOTE | 2024-12-08 13:30 | DI.RAD_ITS ---
Exam(s) XR ANKLE RT 2V EXAM: XR ANKLE RT 2V CLINICAL HISTORY: RIGHT ANKLE FRACTURE. TECHNIQUE: 2D and realtime digital imaging was performed. COMPARISON: CR,XR XR ANKLE RT 2V from 12/05/2024 FINDINGS: Hardcopy images show this of tooth screws through the medial malleolus and placement of a lateral fle cks a rico plate along the lateral malleolus. Fracture alignment is now anatomic. Please see procedure note for details. Fluoro time: 26.7seconds RADIATION DOSE DELIVERED: epifanio Haynes=0.49 mGy
[2024-12-08] MEDS: ceFAZolin 2 GM/50 ML BAG IVPB (13:46)
[2024-12-08] MEDS: TRANEXAMIC ACID/SOD. CHL. 1,000 MG/100 ML BAG 600 MG IVPB (13:51)
--- NOTE | 2024-12-08 14:02 | ROE_ITS ---
Operative Note Operative Note PRE-OP DIAGNOSIS: Right Trimalleolar Ankle Fracture POST-OP DIAGNOSIS: same PROCEDURE: Open Reduction and Internal Fixation of Right Trimalleolar Ankle Fracture - Medial and Lateral Malleoli SURGEON: Arthur Cruz [employer] PIL[employer]: Tracy Diop ANESTHESIA TYPE: General LMA/ETT Refer to Anesthesia Record ESTIMATED BLOOD LOSS: 50 PATHOLOGY: none sent TOURNIQUET TIME: 0 COMPLICATIONS: None Patient was transported to: PACU Patient's condition: stable Indications: Erich is an active 29 year old male who presented to the Emergency Department after a fall. X-rays confirmed the diagnosis of a trimalleolar ankle fracture with talar subluxation. I reviewed the possible treatment options and given the fracture, I recommended operative fixation. I discussed the technical details of the surgery. I reviewed the risks such as bleeding, infection, pain, stiffness, malunion, nonunion, hardware prominence, hardware faiilure, malrotation, damage to nerves and vessels, blood clot. Despite these risks, he agreed to proceed. Findings: There is a notably displaced oblique fracture of the lateral malleolus, distal fibula, which was able to be reduced with direct manipulation and a lag screw with neutralization plate. The medial malleolus had a slightly oblique transverse fracture which was held in reduction with two 4.0 mm cannulated screws. Procedure Description: Erich was greeted in the preoperative area. Consent was reviewed and signed. A popliteal and adductor block was provide in the day surgery unit. Erich was transferred to the operating room table. General anesthesia was administered. The right leg was placed onto a bone foam ramp. All bony prominences were well padded. Arms were placed out to the side, padded, and secured. A single dose of TXA, 1 gram, was then administered IV. Prophylactic antibiotics, Cefazolin 2 grams, was given for prophylactic antibiotics. A timeout was performed for safe surgery. The right leg was prepped with Chloraprep. The leg was draped with a stockinette and extremity drape. Starting with the medial side of the ankle, a curvilinear incision was made overlying the medial malleolus curving anteriorly towards the anterior shoulder of the tibiotalar joint. Skin was incised sharply. Deep tissues were dissected with Metzenbaum scissor. The fracture line about minimal this was easily identified and the fascia around the fracture was elevated for better exposure. The fracture was distracted and the joint was inspected with a lamina batch still operator placed into the fracture site. The joint was irrigated thoroughly and there is no fragment seen within the joint itself. The lamina batch still operator was removed and the medial wound was covered with a lap pad. Attention was then turned to the lateral side of the ankle. A longitudinal incision about the fibula was made. This was incised sharply through the skin only. Deep dissection was carried down with Metzenbaum scissors to expose the lateral border of the fibula. Aldridge elevator was utilized periosteally dissect the fracture and extended distally to the tip of the fibula and proximally in anticipation of plate fixation. The fracture was a short oblique fracture extending posteriorly. Fracture hematoma was evacuated with a suction, curette, and irrigation. The reduction maneuver was then performed utilizing a lobster claw clamp with near anatomic alignment of the bony edges. Fluoroscopy is utilized to confirm for positioning. I then placed a single lag screw across the fracture at oblique angle crossing perpendicular to the fracture with excellent purchase and good fracture compression. Clamp was rem cele and there is stability of the fracture. I then used a 7 hole one third tubular plate to neutralize the fracture. The plate was contoured on the back table. This was then placed onto the lateral border the fibula and secured with a nonlocking cortical screw proximal to the fracture site make sure to hold the plate in appropriate position distally. The plate was held against the bone distally and a locking screw was placed into the distal fibula make sure not to penetrate the articular side of the distal fibula. X-ray was once again was utilized to confirm appropriate positioning of the plate. 2 additional locking screws were placed distally and 2 additional nonlocking screws were placed proximally. These had excellent purchase and fixation. Final x-rays showed appropriate placement of the plate and screws. Attention was turned to the medial side the ankle once again. The medial malleolus was now anatomically reduced. It was held reduced while to K wires from the 4.0 mm cannulated screw system were advanced from distal to proximal, 1 anterior and 1 more posterior. The fracture of the medial is did slip off posteriorly where the anterior colliculus was the primary displaced fragment. With these 2 K wires placed and they were confirmed to be in appropriate position on the x-ray. They were measured and overdrilled 1 at a time. 52 mm long partially-threaded 4.0 mm cannula screws were placed 1 at a time, anteriorly then posteriorly. These had excellent compression and the fracture had good stability. Final x-rays were obtained. A stress view was also obtaine d with the foot in dorsiflexion and maximal external rotation without any tibiofibular diastases and without any medial clear space widening. Lateral view was also obtained which showed no displacement of the posterior malleolar fragment. Is unable to be identified on the x-ray and therefore no posterior malleolar fixation was needed. The ankle was taken through range of motion without any block to motion and with no change of fracture positioning on the x- ray. These wounds were then thoroughly irrigated. 0.25% bupivacaine was used to inject the deep and superficial tissues around both wounds. The deep fascia of the lateral wound was closed with 0 Vicryl covering the plate. The deep subcutaneous tissues were closed with 3-0 Vicryl. The skin was closed with a running 4-0 nylon. The medial wound was closed with 2-0 Vicryl followed by interrupted 4-0 nylon. The wounds were then dressed with Xeroform, 4 x 4 gauze, and ABDs. This was further reinforced with Webril. A short leg posterior splint was then applied utilizing fiberglass. At the end of the case, all counts were correct. Erich tolerated the procedure well without known complication and was taken to the PACU for recovery. Physical therapy will start post-operatively, nonweightbearing with a splint. Aspirin 81 mg twice daily will be utilized for anticoagulation. Follow-up in 2 weeks. Date of Procedure: 12/08/24
--- NOTE | 2024-12-08 14:08 | ANES.NERVE_ITS ---
Nerve Block Single Injection Procedure Date and Time Date Performed: 12/08/24 Procedure Start: 13:24 Location Where Procedure Performed Procedure Location: Day Surgery Unit Reason Performed: Postoperative Analgesia Requesting Provider: Arthur Cruz Timeout Performed Timeout Performed: Yes Monitoring Used ECG, Blood Pressure, SpO2 and ETCO2 Sterility Sterility: Hand Hygiene, Surgical Cap, Surgical Mask, Sterile Gloves and Chlorhexidine Sedation Given During Procedure Sedation Given (Indicate Dose Given): Versed IV (2 mg + 2 mg) Dose:: 4 mg Patient Mental Status Patient Mental Status: Sedate with meaningful communication Nerve Block 1st Nerve Block: Laterality: Right Block Type: Popliteal Sciatic Ultrasound Image Saved?: Yes Needle / Catheter Used: 100mm SonoPlex II Local Anesthetic Bolus (Indicate Dose Given): Lidocaine used for local infiltration of skin and Bupivacaine 0.375% Dose:: 20 mL Additives (Indicate Dose Given): None Ultrasound: Sterile probe cover and gel used Nerve Stimulator: Supplement to Ultrasound use and No twitch or parasthe gaurav noted < 0.5 mA Paresthesia: None Procedure Tolerated: No Complications Procedure Outcome: Successful Procedure Comment: Prior to blocks, discussed risks, benefits of regional. Risks including but not limited to block failure, infection, damage to blood vessels, permanent nerve injury. Performed By: Kevin Fleming 2nd Nerve Block: Laterality: Right Block Type: Adductor Canal Ultrasound Image Saved?: Yes Needle / Catheter Used: 100mm SonoPlex II Local Anesthetic Bolus (Indicate Dose Given): Bupivacaine 0.375% Dose:: 10 Additives (Indicate Dose Given): None Ultrasound: Sterile probe cover and gel used Nerve Stimulator: Supplement to Ultrasound use and No twitch or parasthesia noted < 0.5 mA Paresthesia: None Procedure Tolerated: No Complications Procedure Outcome: Successful Performed By: Kevin Fleming
[2024-12-08] MEDS: Bupivacaine 0.5% Pres-Free W/EPI 30 ML VIAL (14:57)
--- NOTE | 2024-12-08 15:38 | W.ANESPOSTOP ---
Postoperative Evaluation Date, Time and Location Date Performed: 12/08/24 Time Performed: 15:38 Patient Location: PACU Vital Signs Most Recent Imported Vital Signs: Most Recent Vital Signs Temp Pulse Resp BP Pulse Ox 36.8 C 68 14 148/91 H 97 12/08/24 13:18 12/08/24 13:40 12/08/24 13:40 12/08/24 13:40 12/08/24 13:40 Pain Score Most Recent Pain Score: Most Recent Pain Score Pain Level 0 12/08/24 13:40 Assessment Mental Status: Awake (Alert & Oriented to Patient Baseline) Airway and Respiratory Function: Patent airway with normal (patient baseline) respiratory exam Cardiovascular Function: Hemodynamically Stable Hydration Status: Adequately Hydrated Nausea & Vomiting: No Nausea or Vomiting Pain: Pain is tolerable per patient Peripheral Nerve Block: Regional nerve block not resolved at time of post operative discharge
== END 2024-12-08 17:17 | disposition home or self-care (01) ==
PROVIDERS: PCP Nurse Practitioner Family; Visit Provider Student in an Organized Health Care Education/Training Program
PROC: (CPT 27822; principal; 2024-12-08 14:45)
DX: S82.851A Displaced trimalleolar fracture of right lower leg, initial encounter for closed fracture (principal); W18.31XA Fall on same level due to stepping on an object, initial encounter; G89.18 Other acute postprocedural pain
CPT/HCPCS: 27822; 64445; 64447; 64450; 76000; 73600; J0665; J0690; J1100; J2250; J2405; J2704

== ENCOUNTER 2024-12-21 11:22 | Outpatient (CLI) | payer OTHER, SELFPAY ==
--- NOTE | 2024-12-21 10:15 | DI.RAD_ITS ---
Exam(s) XR ANKLE RT COMPLETE EXAM: XR ANKLE RT COMPLETE CLINICAL HISTORY: 1ST POST OP S/P R ANKLE ORIF. TECHNIQUE: 2D digital imaging was performed. Three images were obtained. AP, lateral and oblique vi ews were obtained. COMPARISON: CR,XR XR ANKLE RT 2V from 12/05/2024 CR,XR XR ANKLE RT COMPLETE from 12/05/2024 XA XR ANKLE RT 2V from 12/08/2024 FINDINGS: BONES: There are stable post operative changes of internal fixation of the distal tibial and fibular fractures present. No new fracture or dislocation. The orthopedic hardware and fractures appears sta ble. JOINTS: The joint spaces are well maintained. SOFT TISSUE: Normal. IMPRESSION: Stable postoperative changes. DATA REPOSITORY: RADIATION DOSE DELIVERED:
== END 2024-12-21 11:23 | disposition home or self-care (01) ==
LOC: DIORS 11:22
PROVIDERS: PCP Nurse Practitioner Family; Referring Provider Nurse Practitioner Family; Visit Provider Physician Assistant
DX: S82.851A Displaced trimalleolar fracture of right lower leg, initial encounter for closed fracture (principal)
CPT/HCPCS: 73610

== ENCOUNTER 2025-01-28 11:29 | Outpatient (CLI) | payer OTHER, SELFPAY ==
--- NOTE | 2025-01-28 11:18 | DI.RAD_ITS ---
Exam(s) XR ANKLE RT COMPLETE EXAM: XR ANKLE RT COMPLETE CLINICAL HISTORY: S/P ORIF R ANKLE. TECHNIQUE: 2D digital imaging was performed. COMPARISON: CR XR ANKLE RT COMPLETE from 12/21/2024 FINDINGS: 3 views The previously described hardware on both sides the ankle is again noted comprise of a lateral fixati on plate across the healed distal fibular fracture site secured by multiple screws as well as an inde pendent screw at the fracture site. On the medial aspect of the ankle there 2 parallel screws in the medial malleolus. The fracture line at this level is no longer visible but there is some abnormal appearing hypodensity in the medial ma lleolus which is more evident than on prior images of 12/21/2024. There does not appear to be loosen ing of these medial malleolus screws. The talar dome appears unremarkable. IMPRESSION: Abnormal hypodensity in the medial malleolus. Cannot exclude osteomyelitis. DATA REPOSITORY: RADIATION DOSE DELIVERED:
== END 2025-01-28 11:30 | disposition home or self-care (01) ==
LOC: DIORS 11:30
PROVIDERS: PCP Nurse Practitioner Family; Referring Provider Nurse Practitioner Family; Visit Provider Physician Assistant
DX: S82.851A Displaced trimalleolar fracture of right lower leg, initial encounter for closed fracture (principal)
CPT/HCPCS: 73610

== ENCOUNTER 2025-03-11 11:13 | Outpatient (CLI) | payer OTHER, SELFPAY ==
--- NOTE | 2025-03-11 10:45 | DI.RAD_ITS ---
Exam(s) XR ANKLE RT COMPLETE EXAM: XR ANKLE RT COMPLETE CLINICAL HISTORY: F/U FRACTURE. TECHNIQUE: 2D digital imaging was performed. Three views. COMPARISON: CR,XR XR ANKLE RT 2V from 12/05/2024 CR,XR XR ANKLE RT COMPLETE from 12/05/2024 CR XR ANKLE RT COMPLETE from 12/21/2024 CR XR ANKLE RT COMPLETE from 01/28/2025 FINDINGS: BONES: No change in hardware in the distal tibia and fibula. The fracture lines are no longer discretely visible. No bony destructive lesion is seen. There is disuse osteopenia. JOINTS: The ankle mortise is normally aligned. SOFT TISSUE: Normal. IMPRESSION: Fracture lines no longer visible. DATA REPOSITORY: RADIATION DOSE DELIVERED:
== END 2025-03-11 11:14 | disposition home or self-care (01) ==
LOC: DIORS 11:13
PROVIDERS: PCP Nurse Practitioner Family; Visit Provider Physician Assistant
DX: S82.851A Displaced trimalleolar fracture of right lower leg, initial encounter for closed fracture (principal)
CPT/HCPCS: 73610